=== PATIENT | female | born 1965 | race Caucasian/White ===

== ENCOUNTER 2017-02-04 19:12 | Emergency (ER) | payer MEDICAID ==
[~2017-02-04] VITALS: Ht 157.5 cm; Wt 117.0 kg
[2017-02-04 19:15] VITALS: BP_SYST 137
[2017-02-04] MEDS ORDERED: LEVO88TA5 PO (19:25)
[2017-02-04] MEDS ORDERED: ERGO500043 PO (19:25)
[2017-02-04] MEDS ORDERED: PANT20TA2 PO (19:25)
--- NOTE | 2017-02-04 19:25 | NUR ---
Medication reconciliation completed with information provided by PATIENT. Any prior medication reconciliation on file was reviewed and corrected.
--- NOTE | 2017-02-04 19:33 | NUR ---
Pt brought in by self, states she has swelling to both legs for last two months, states swelling "has worsened over last 2 days". Pt also states having difficulty breathing during activity, denies SOB at rest. Skin shiny, slight pitting edema noted to calves bilaterally. Cap refill brisk to all 10 digits in lower extremities. Pt denies loss of sensation to lower extremities, able to flex and extend foot bilaterally and wiggle toes on command. Pt denies any other complaints.
--- NOTE | 2017-02-04 19:33 | NUR ---
Patient to ER bed 3 to gown for evaluation. Side rails up.
--- NOTE | 2017-02-04 19:33 | NUR ---
Note benmichele in EDM - 02/05/17 at 0024 by SYMONE Pt BIB self, states she has swelling to both legs for last two months, states swelling "has worsened over last 2 days". Pt also states having difficulty breathing during activity, denies SOB at rest. Skin shiny, slight pitting edema noted to calves bilaterally. Cap refill brisk to all 10 digits in lower extremities. Pt denies loss of sensation to lower extremities, able to flex and extend foot bilaterally and wiggle toes on command. Pt denies any other complaints.
--- NOTE | 2017-02-04 20:14 | NUR ---
ER at bedside examining patient.
[2017-02-04 20:57] LABS: HEMATOCRIT 27.3 % (36-48); HEMOGLOBIN 9.3 g/dL (12.0-16.0); MEAN CORPUSCULAR HEMOGLOBIN 30 pg (27-31); MEAN CORPUSCULAR HGB CONC 34 % (32-36); MEAN CORPUSCULAR VOLUME 90 fL (79.0-98.0); RED BLOOD CELL COUNT(AUTO) 3.05 MIL/uL (4.2-6.2); RED CELL DISTRIBUTION WIDTH 16.9 % (9.0-15.0); WHITE BLOOD COUNT (AUTO) 2.3 K/uL (4.8-10.8)
[2017-02-04 21:03] LABS: CALCIUM 7.7 mg/dL (8.4-11.0); CHLORIDE 108 mmol/L (98-107); CREATININE 0.79 mg/dL (0.55-1.30); GLUCOSE 146 mg/dL (70-99); POTASSIUM 3.9 mmol/L (3.5-5.1); SODIUM SERUM 136 mmol/L (136-145); UREA NITROGEN, BLOOD 11 mg/dL (8-21)
[2017-02-04 21:04] LABS: INR 1.4 (0.8-1.2); PROTHROMBIN TIME 15.3 SECS (9.5-12.5)
[2017-02-04 21:06] LABS: ANION GAP < 3 (5-15); GFR AFRICAN AMERICAN 99 mL/min (>90)
[2017-02-04 21:08] LABS: ALANINE AMINOTRANSFERASE 30 U/L (12-78); ASPARTATE AMINOTRANSFERASE 69 U/L (10-37); TOTAL BILIRUBIN 4.5 mg/dL (0.0-1.0)
[2017-02-04 21:13] LABS: PLATELET COUNT (AUTO) 54 K/uL (130-430)
[2017-02-04 21:14] LABS: BAND % (MANUAL) 0 % (0-6); BASOPHILS % (MANUAL) 0 % (0-2); EOSINOPHILS % (MANUAL) 3 % (0-7); LYMPHOCYTES % (MANUAL) 35 % (20-46); MONOCYTES % (MANUAL) 12 % (0-11)
--- NOTE | 2017-02-04 21:25 | NUR ---
Pt stable, no signs of distress noted.
[2017-02-04 21:45] VITALS: BP_SYST 135
--- NOTE | 2017-02-04 21:45 | NUR ---
Patient given written and verbal discharge instructions and verbalizes understanding. ER MD discussed with patient the results and treatment provided. Patient in stable condition. ID arm band removed. Rx of spironolactone given. Patient educated on pain management and to follow up with PMD. Pain Scale 0/10. Opportunity for questions provided and answered.
== END 2017-02-04 21:45 | disposition home or self-care (01) ==
LOC: SED 19:12
DX: R60.0 Localized edema (principal); E03.9 Hypothyroidism, unspecified
CPT/HCPCS: 36415; 71010; 80053; 83880; 84443-TC; 85007; 85027; 85610-TC; 85730-TC; 93005; 99285